=== PATIENT | female | born 1990 | race Caucasian/White ===

== ENCOUNTER 2016-05-13 13:36 | Emergency (ER) | payer OTHER ==
[~2016-05-13] VITALS: Ht 165.1 cm; Wt 87.2 kg
[~2016-05-13 13:36] MED LIST: ACETAMINOPHN-T1 EACH; BUPROPION XL150 MG PO; BUTALB-APAP-CA1 EACH; CYCLOBENZAPR TAB 10M; ENDOCET 5-3251 EACH PO; FLEXERIL5 MG PO; IBUPROFEN800 MG; KEFLEX500 MG PO; LORTAB 5-325 M1 EACH PO; MACRODANTIN100 MG PO; MONONESSA1 EACH PO; MOTRIN800 MG PO; MULTIVITAMIN1 EAC1 PO; Motrin PO; NAPROSYN500 MG PO; NO HOME MEDS; NOHOMEMEDS; NORCO 5/3251 TABLET PO; PERCOCET 5/31 TABLET PO; PREDNISONE10 MG PO; PRENATAL VITS; PRENATAL1 EACH PO; TORADOL10 MG PO; TYLENOL WITH C1 EACH PO; VALIUM5 MG PO; ZANTAC150 MG PO; ZOFRAN4 MG PO
[2016-05-13 14:38] LABS: ADD MIUA? NO; BILIRUBIN NEGATIVE; BLOOD NEGATIVE; COLOR YELLOW ((YELLOW)); GLUCOSE (STRIP) NEGATIVE; KETONES NEGATIVE; LEUKOCYTES NEGATIVE; NITRITE NEGATIVE; PROTEIN (STRIP) NEGATIVE; SPECIFIC GRAVITY 1.023 (1.000-1.030); UROBILINOGEN 0.2 MG/DL (0.2-1.0)
[2016-05-13 15:17] LABS: CHLORIDE 111 mEq/L (99-109); POTASSIUM 4.5 mEq/L (3.7-5.4); SODIUM 141 mEq/L (136-147)
[2016-05-13 15:20] LABS: GLUCOSE 88 mg/dL (70-99)
[2016-05-13 15:21] LABS: ANION GAP 6 MEQ/L (2-14)
[2016-05-13 15:22] LABS: TOTAL BILIRUBIN 0.3 mg/dL (0.0-1.0)
[2016-05-13 15:23] LABS: ALKALINE PHOSPHATASE 46 IU/L (3-129); GFR ESTIMATE (CALCULATED) > 59 mL/min/
[2016-05-13 15:25] LABS: UREA NITROGEN (BUN) 8 mg/dL (9-23)
[2016-05-13 15:27] LABS: LIPASE 30 U/L (1.0-51.0)
[2016-05-13 15:33] LABS: QUANTITATIVE HCG < 4.0 MIU/ML
[2016-05-13 16:05] LABS: HEMATOCRIT 39.7 % (36.0-46.0); MCH 30.7 PG (29.0-34.0); MCHC 34.5 G/DL (30.0-36.0); MEAN PLAT.VOLUME 13.7 uM^3 (9.5-12.4); PLATELET COUNT 112 K/uL (156-360); RBC DIS.WIDTH-CV 14.1 % (11.8-14.6); RBC DIS.WIDTH-SD 45.4 % (39-53); RED BLOOD COUNT 4.46 M/uL (3.80-5.20); WHITE BLOOD COUNT 4.5 K/uL (4.1-10.2)
[2016-05-13] MEDS ORDERED: CITRATE OF MAG296 ML PO (16:39)
[2016-05-13] MEDS ORDERED: ZOFRAN ODT4 MG PO (16:39)
[2016-05-13] MEDS ORDERED: STOOL SOFTENER250 MG PO (16:39)
[2016-05-13] MEDS ORDERED: MIRALAX255 GM PO (16:39)
[2016-05-13 16:59] VITALS: BP 121/84
== END 2016-05-13 17:02 | disposition home or self-care (01) ==
LOC: EME 13:36
PROVIDERS: Nurse Practitioner Family
DX: R10.2 Pelvic and perineal pain (principal); K59.03 Drug induced constipation; F17.200 Nicotine dependence, unspecified, uncomplicated; Z97.5 Presence of (intrauterine) contraceptive device; Z88.6 Allergy status to analgesic agent
CPT/HCPCS: 74000; 80053; 81003; 83690; 84702; 85027; 87210; 99281; 99284; J1885

== ENCOUNTER 2017-03-07 15:46 | Emergency (ER) | payer OTHER ==
[~2017-03-07] VITALS: Ht 167.6 cm; Wt 88.8 kg
[~2017-03-07 15:46] MED LIST changes: +CITRATE OF MAG296 ML PO; +MIRALAX255 GM PO; +STOOL SOFTENER250 MG PO; +ZOFRAN ODT4 MG PO
[2017-03-07 17:54] LABS: HEMATOCRIT 40.8 % (36.0-46.0); MCH 30.4 PG (29.0-34.0); MCHC 34.3 G/DL (30.0-36.0); MCV 88.7 FL (83-99); MEAN PLAT.VOLUME 13.4 uM^3 (9.5-12.4); PLATELET COUNT 172 K/uL (156-360); RBC DIS.WIDTH-CV 13.8 % (11.8-14.6); RBC DIS.WIDTH-SD 44.7 % (39-53); WHITE BLOOD COUNT 7.3 K/uL (4.1-10.2)
[2017-03-07 18:08] LABS: ADD MIUA? NO; BILIRUBIN NEGATIVE; BLOOD NEGATIVE; COLOR YELLOW ((YELLOW)); GLUCOSE (STRIP) NEGATIVE; KETONES NEGATIVE; LEUKOCYTES NEGATIVE; NITRITE NEGATIVE; PROTEIN (STRIP) NEGATIVE; SPECIFIC GRAVITY 1.035 (1.000-1.030); UCUL ADDED? NO; UROBILINOGEN 0.2 MG/DL (0.2-1.0)
[2017-03-07 18:09] LABS: CHLORIDE 108 mEq/L (99-109); POTASSIUM 3.9 mEq/L (3.7-5.4); SODIUM 140 mEq/L (136-147)
[2017-03-07 18:11] LABS: GLUCOSE 88 mg/dL (70-99)
[2017-03-07 18:12] LABS: ANION GAP 8 MEQ/L (2-14)
[2017-03-07 18:13] LABS: TOTAL BILIRUBIN 0.2 mg/dL (0.0-1.0)
[2017-03-07 18:15] LABS: ALKALINE PHOSPHATASE 55 IU/L (3-129); GFR ESTIMATE (CALCULATED) > 59 mL/min/
[2017-03-07 18:16] LABS: UREA NITROGEN (BUN) 10 mg/dL (9-23)
[2017-03-07 18:24] LABS: QUANTITATIVE HCG 81.4 MIU/ML
[2017-03-07] MEDS ORDERED: PRENATAL ONE T1 EACH PO (18:35)
[2017-03-07] MEDS ORDERED: ZOFRAN4 MG PO (18:35)
[2017-03-07 18:39] VITALS: BP 121/69
== END 2017-03-07 18:52 | disposition home or self-care (01) ==
LOC: EME 15:46
DX: O26.891 Other specified pregnancy related conditions, first trimester (principal); R10.30 Lower abdominal pain, unspecified; R10.2 Pelvic and perineal pain; Z3A.00 Weeks of gestation of pregnancy not specified; O99.511 Diseases of the respiratory system complicating pregnancy, first trimester; J45.909 Unspecified asthma, uncomplicated; O99.341 Other mental disorders complicating pregnancy, first trimester; F32.9 Major depressive disorder, single episode, unspecified; O99.331 Smoking (tobacco) complicating pregnancy, first trimester; Z72.0 Tobacco use
CPT/HCPCS: 80053; 81003; 84702; 85027; 99281; 99283

== ENCOUNTER 2017-04-13 17:09 | Emergency (ER) | payer OTHER ==
[~2017-04-13] VITALS: Ht 167.6 cm; Wt 85.5 kg
[~2017-04-13 17:09] MED LIST changes: +PRENATAL ONE T1 EACH PO
[2017-04-13 18:29] LABS: HEMATOCRIT 40.2 % (36.0-46.0); HEMOGLOBIN 14.1 G/DL (11.9-15.5); MCH 31.1 PG (29.0-34.0); MCHC 35.1 G/DL (30.0-36.0); MCV 88.5 FL (83-99); PLATELET COUNT 120 K/uL (156-360); RBC DIS.WIDTH-CV 13.2 % (11.8-14.6); RBC DIS.WIDTH-SD 43.2 % (39-53); RED BLOOD COUNT 4.54 M/uL (3.80-5.20); WHITE BLOOD COUNT 9.2 K/uL (4.1-10.2)
[2017-04-13 18:39] LABS: ALBUMIN 3.9 g/dL (3.2-4.8); CHLORIDE 108 mEq/L (99-109); POTASSIUM 3.6 mEq/L (3.7-5.4)
[2017-04-13 18:40] LABS: SODIUM 137 mEq/L (136-147)
[2017-04-13 18:42] LABS: GLUCOSE 92 mg/dL (70-99); TOTAL PROTEIN 6.9 g/dL (6.4-8.3)
[2017-04-13 18:44] LABS: TOTAL BILIRUBIN 0.2 mg/dL (0.0-1.0)
[2017-04-13 18:45] LABS: ALKALINE PHOSPHATASE 41 IU/L (3-129); CREATININE 0.6 mg/dL (0.6-1.3); GFR ESTIMATE (CALCULATED) > 59 mL/min/
[2017-04-13 18:46] LABS: APPEARANCE SL.HAZY ((CLEAR)); BILIRUBIN SMALL; BLOOD NEGATIVE; COLOR AMBER ((YELLOW)); GLUCOSE (STRIP) NEGATIVE; KETONES 5; LEUKOCYTES NEGATIVE; NITRITE NEGATIVE; PROTEIN (STRIP) 30; SPECIFIC GRAVITY 1.036 (1.000-1.030)
[2017-04-13 18:47] LABS: AST (GOT) 10 IU/L (2-34); UREA NITROGEN (BUN) 10 mg/dL (9-23)
[2017-04-13 18:48] LABS: ALT (GPT) 9 IU/L (3-49)
[2017-04-13 19:13] LABS: QUANTITATIVE HCG 145294.7 MIU/ML
[2017-04-13 19:31] LABS: EPITHELIAL CELLS RARE /HPF; MUCUS 3+ /LPF; RED BLOOD CELLS RARE /HPF (0-5); WHITE BLOOD CELLS 0-5 /HPF (0-5)
[2017-04-13 19:32] LABS: BACTERIA RARE /HPF; UCUL ADDED? NO
[2017-04-13 19:33] LABS: CALCIUM OXALATE CRYSTALS 2+ /HPF
[2017-04-13] MEDS ORDERED: ZOFRAN4 MG PO (20:53)
[2017-04-13 21:09] VITALS: BP 111/78
== END 2017-04-13 21:09 | disposition home or self-care (01) ==
LOC: EME 17:09
DX: O21.9 Vomiting of pregnancy, unspecified (principal); Z3A.09 9 weeks gestation of pregnancy; J45.909 Unspecified asthma, uncomplicated; F32.9 Major depressive disorder, single episode, unspecified; Z87.891 Personal history of nicotine dependence; Z90.49 Acquired absence of other specified parts of digestive tract; Z88.5 Allergy status to narcotic agent; Z88.6 Allergy status to analgesic agent; Z91.041 Radiographic dye allergy status
CPT/HCPCS: 76801; 80053; 81003; 84702; 85027; 99281; 99284; J2405; J7030

== ENCOUNTER 2017-06-23 14:13 | Emergency (ER) | payer OTHER ==
[~2017-06-23] VITALS: Ht 167.6 cm; Wt 87.2 kg
[2017-06-23 14:31] LABS: HEMOGLOBIN 13.1 G/DL (11.9-15.5); MCHC 34.5 G/DL (30.0-36.0); MCV 89.8 FL (83-99); RBC DIS.WIDTH-CV 14.2 % (11.8-14.6); RBC DIS.WIDTH-SD 46.2 % (39-53); RED BLOOD COUNT 4.23 M/uL (3.80-5.20); WHITE BLOOD COUNT 11.1 K/uL (4.1-10.2)
[2017-06-23 14:46] LABS: APPEARANCE SL.HAZY ((CLEAR)); BILIRUBIN NEGATIVE; BLOOD NEGATIVE; COLOR YELLOW ((YELLOW)); GLUCOSE (STRIP) NEGATIVE; KETONES NEGATIVE; LEUKOCYTES TRACE; NITRITE NEGATIVE; PROTEIN (STRIP) NEGATIVE; SPECIFIC GRAVITY 1.023 (1.000-1.030); UROBILINOGEN 0.2 MG/DL (0.2-1.0)
[2017-06-23 14:52] LABS: QUANTITATIVE HCG 9059.5 MIU/ML
[2017-06-23 14:58] LABS: BACTERIA 1+ /HPF; CALCIUM OXALATE CRYSTALS 1+ /HPF; EPITHELIAL CELLS RARE /HPF; HYALINE CASTS 0-5 /LPF; MUCUS 4+ /LPF; UCUL ADDED? YES
[2017-06-23 15:41] LABS: CHLORIDE 108 mEq/L (99-109); POTASSIUM 3.9 mEq/L (3.7-5.4); SODIUM 137 mEq/L (136-147)
[2017-06-23 15:42] LABS: GLUCOSE 116 mg/dL (70-99)
[2017-06-23 15:46] LABS: CREATININE 0.6 mg/dL (0.6-1.3); GFR ESTIMATE (CALCULATED) > 59 mL/min/
[2017-06-23 15:47] LABS: UREA NITROGEN (BUN) 7 mg/dL (9-23)
[2017-06-23 15:54] LABS: PLAT.SUFFICIENCY ADEQUATE; PLATELET COUNT 142 K/uL (156-360)
[2017-06-23] MEDS ORDERED: KEFLEX500 MG PO (16:36)
[2017-06-23 18:07] VITALS: BP 103/65
== END 2017-06-23 18:11 | disposition home or self-care (01) ==
LOC: EME 14:13
DX: O26.892 Other specified pregnancy related conditions, second trimester (principal); R10.2 Pelvic and perineal pain; O23.42 Unspecified infection of urinary tract in pregnancy, second trimester; O99.282 Endocrine, nutritional and metabolic diseases complicating pregnancy, second trimester; E86.0 Dehydration; O20.9 Hemorrhage in early pregnancy, unspecified; Z3A.19 19 weeks gestation of pregnancy; O99.512 Diseases of the respiratory system complicating pregnancy, second trimester; J45.909 Unspecified asthma, uncomplicated; O99.342 Other mental disorders complicating pregnancy, second trimester; F32.9 Major depressive disorder, single episode, unspecified; Z88.5 Allergy status to narcotic agent; Z87.891 Personal history of nicotine dependence
CPT/HCPCS: 76770; 76805; 80048; 81003; 84702; 85027; 87077; 87086; 87186; 99281; 99285; J0696; J7030

== ENCOUNTER 2017-07-26 18:16 | Observation (INO) | payer OTHER ==
[~2017-07-26] VITALS: Ht 162.6 cm; Wt 87.2 kg
[2017-07-26 20:52] LABS: HEMATOCRIT 36.7 % (36.0-46.0); HEMOGLOBIN 12.8 G/DL (11.9-15.5); MCH 31.8 PG (29.0-34.0); MCHC 34.9 G/DL (30.0-36.0); MCV 91.3 FL (83-99); PLATELET COUNT 153 K/uL (156-360); RBC DIS.WIDTH-CV 13.9 % (11.8-14.6); RBC DIS.WIDTH-SD 46.6 % (39-53); RED BLOOD COUNT 4.02 M/uL (3.80-5.20); WHITE BLOOD COUNT 13.3 K/uL (4.1-10.2)
[2017-07-26 21:05] LABS: ALBUMIN 3.6 g/dL (3.2-4.8)
[2017-07-26 21:06] LABS: CHLORIDE 109 mEq/L (99-109); POTASSIUM 3.7 mEq/L (3.7-5.4); SODIUM 140 mEq/L (136-147)
[2017-07-26 21:08] LABS: GLUCOSE 81 mg/dL (70-99); TOTAL PROTEIN 7.1 g/dL (6.4-8.3)
[2017-07-26 21:10] LABS: TOTAL BILIRUBIN 0.3 mg/dL (0.0-1.0)
[2017-07-26 21:11] LABS: ALKALINE PHOSPHATASE 100 IU/L (3-129)
[2017-07-26 21:12] LABS: CREATININE 0.6 mg/dL (0.6-1.3); GFR ESTIMATE (CALCULATED) > 59 mL/min/
[2017-07-26 21:13] LABS: AST (GOT) 9 IU/L (2-34); UREA NITROGEN (BUN) 5 mg/dL (9-23)
[2017-07-26 21:14] LABS: ALT (GPT) 12 IU/L (3-49)
[2017-07-26 21:22] LABS: APPEARANCE CLEAR ((CLEAR)); BILIRUBIN NEGATIVE; BLOOD NEGATIVE; COLOR YELLOW ((YELLOW)); GLUCOSE (STRIP) NEGATIVE; KETONES 5; LEUKOCYTES TRACE; NITRITE NEGATIVE; PROTEIN (STRIP) 30; SPECIFIC GRAVITY 1.026 (1.000-1.030); UROBILINOGEN 0.2 MG/DL (0.2-1.0)
[2017-07-26 21:39] LABS: BACTERIA RARE /HPF; EPITHELIAL CELLS 1+ /HPF; MUCUS 4+ /LPF; UCUL ADDED? NO; WHITE BLOOD CELLS 0-5 /HPF (0-5)
[2017-07-27 01:00] VITALS: BP 110/55
[2017-07-27 07:35] VITALS: BP 118/57
[2017-07-27 07:59] LABS: HEMATOCRIT 31.9 % (36.0-46.0); HEMOGLOBIN 11.1 G/DL (11.9-15.5); MCH 31.7 PG (29.0-34.0); MCHC 34.8 G/DL (30.0-36.0); MCV 91.1 FL (83-99); PLATELET COUNT 141 K/uL (156-360); RBC DIS.WIDTH-CV 13.8 % (11.8-14.6); RBC DIS.WIDTH-SD 46.1 % (39-53); WHITE BLOOD COUNT 9.9 K/uL (4.1-10.2)
[2017-07-27 15:11] VITALS: BP 114/58
[2017-07-27 20:52] VITALS: BP 110/61
[2017-07-28 02:37] VITALS: BP 94/52
[2017-07-28 07:27] VITALS: BP 94/60
[2017-07-28 07:54] LABS: BASOPHIL (%) 0.3 % (0-1); EOSINOPHIL (%) 1.1 % (0-5); EOSINOPHIL COUNT 0.1 K/uL (0-0.3); HEMATOCRIT 32.5 % (36.0-46.0); HEMOGLOBIN 10.8 G/DL (11.9-15.5); IMMATURE GRANULOCYTE (%) 0.3 % (0.0-0.7); LYMPHOCYTE (%) 17.6 % (15-42); LYMPHOCYTE COUNT 1.6 K/uL (1.0-2.8); MCH 30.7 PG (29.0-34.0); MCHC 33.2 G/DL (30.0-36.0); MCV 92.3 FL (83-99); MONOCYTE (%) 5.7 % (3-12); MONOCYTE COUNT 0.5 K/uL (0-0.8); NEUTROPHIL COUNT 6.8 K/uL (1.8-6.4); PLATELET COUNT 135 K/uL (156-360); RBC DIS.WIDTH-CV 13.9 % (11.8-14.6); RED BLOOD COUNT 3.52 M/uL (3.80-5.20); WHITE BLOOD COUNT 9.1 K/uL (4.1-10.2)
[2017-07-28 08:18] LABS: ALBUMIN 3.1 G/DL (3.2-4.8); ALKALINE PHOSPHATASE 65 IU/L (3-129); ALT (GPT) 7 IU/L (3-49); AST (GOT) 7 IU/L (2-34); CHLORIDE 110 MEQ/L (99-109); CREATININE 0.4 MG/DL (0.6-1.3); GFR ESTIMATE (CALCULATED) > 59 mL/min/; GLUCOSE 99 mg/dL (70-99); POTASSIUM 3.7 MEQ/L (3.7-5.4); SODIUM 140 MEQ/L (136-147); TOTAL BILIRUBIN 0.2 MG/DL (0.0-1.0); TOTAL PROTEIN 5.3 G/DL (6.4-8.3); UREA NITROGEN (BUN) 5 mg/dL (9-23)
[2017-07-28 10:30] VITALS: BP 99/55
[2017-07-28 15:31] VITALS: BP 99/54
== END 2017-07-28 18:09 | disposition home or self-care (01) ==
LOC: EME 18:16 → EDOF 22:28 → 2WEST 22:28 → EDOF 22:28 → ENRESERV 22:29 → CANRESERV 23:47 → ENRESERV 23:56 → EDOF 07-27 00:23 → 2WEST 07-27 00:45
PROVIDERS: Obstetrics & Gynecology Gynecology; Physician Assistant; Student in an Organized Health Care Education/Training Program
DX: O98.812 Other maternal infectious and parasitic diseases complicating pregnancy, second trimester (principal); H05.012 Cellulitis of left orbit; J32.2 Chronic ethmoidal sinusitis; J32.0 Chronic maxillary sinusitis; O99.512 Diseases of the respiratory system complicating pregnancy, second trimester; J45.909 Unspecified asthma, uncomplicated; O99.612 Diseases of the digestive system complicating pregnancy, second trimester; K02.9 Dental caries, unspecified; O99.012 Anemia complicating pregnancy, second trimester; D64.9 Anemia, unspecified; O99.342 Other mental disorders complicating pregnancy, second trimester; F31.9 Bipolar disorder, unspecified; Z3A.23 23 weeks gestation of pregnancy; Z87.891 Personal history of nicotine dependence; Z83.3 Family history of diabetes mellitus; Z82.49 Family history of ischemic heart disease and other diseases of the circulatory system
CPT/HCPCS: 59025; 70487; 80053; 81003; 85025; 85027; 99281; 99284; G0378; J0696; J3370; J7030

== ENCOUNTER 2017-08-23 21:13 | Outpatient (CLI) | payer OTHER ==
[2017-08-23 21:42] VITALS: BP 93/55
[2017-08-23 22:16] LABS: SOURCE SWAB
[2017-08-23 22:34] LABS: APPEARANCE SL.HAZY ((CLEAR)); BILIRUBIN NEGATIVE; BLOOD NEGATIVE; COLOR YELLOW ((YELLOW)); GLUCOSE (STRIP) NEGATIVE; KETONES 5; LEUKOCYTES NEGATIVE; NITRITE NEGATIVE; PROTEIN (STRIP) NEGATIVE; SPECIFIC GRAVITY 1.017 (1.000-1.030)
[2017-08-23 22:53] LABS: BACTERIA NONE SEEN /HPF; EPITHELIAL CELLS 1+ /HPF; MUCUS TRACE /LPF; RED BLOOD CELLS 0-5 /HPF (0-5); UCUL ADDED? NO; WHITE BLOOD CELLS 0-5 /HPF (0-5)
== END 2017-08-23 23:17 | disposition home or self-care (01) ==
LOC: LDRP-OP 21:13 → 2WEST 21:14
PROVIDERS: Nurse Practitioner
DX: O26.852 Spotting complicating pregnancy, second trimester (principal); R30.0 Dysuria; R35.0 Frequency of micturition; Z86.19 Personal history of other infectious and parasitic diseases; O99.342 Other mental disorders complicating pregnancy, second trimester; F32.9 Major depressive disorder, single episode, unspecified; O99.512 Diseases of the respiratory system complicating pregnancy, second trimester; J45.909 Unspecified asthma, uncomplicated; Z87.891 Personal history of nicotine dependence; Z82.3 Family history of stroke; O99.352 Diseases of the nervous system complicating pregnancy, second trimester; G43.909 Migraine, unspecified, not intractable, without status migrainosus; O34.219 Maternal care for unspecified type scar from previous cesarean delivery; Z90.49 Acquired absence of other specified parts of digestive tract; Z3A.27 27 weeks gestation of pregnancy
CPT/HCPCS: 59025; 81003; 87491; 87591; G0378

== ENCOUNTER 2017-10-27 19:30 | Outpatient (CLI) | payer OTHER ==
[2017-10-27 19:42] VITALS: BP 112/71
== END 2017-10-27 20:35 | disposition home or self-care (01) ==
LOC: LDRP-OP 19:30 → 2WEST 19:31 → LDRP-OP 12-19 11:55
DX: O26.893 Other specified pregnancy related conditions, third trimester (principal); Z3A.36 36 weeks gestation of pregnancy
CPT/HCPCS: 59025; G0378

== ENCOUNTER 2017-11-05 20:36 | Outpatient (CLI) | payer OTHER ==
[2017-11-05 20:50] VITALS: BP 114/67
[2017-11-05 22:40] LABS: CANDIDA DNA PROBE NEGATIVE; GARDNERELLA DNA PROBE POSITIVE; TRICHOMONAS DNA PROBE NEGATIVE
[2017-11-07] MEDS ORDERED: PRENATAL TABLE1 EAC3 PO (09:58)
[2017-11-07] MEDS ORDERED: TYLENOL325 M2 PO (09:58)
== END 2017-11-05 21:30 | disposition home or self-care (01) ==
LOC: LDRP-OP 20:36 → 2WEST 20:37 → LDRP-OP 12-19 20:43
PROVIDERS: Obstetrics & Gynecology
DX: O26.893 Other specified pregnancy related conditions, third trimester (principal); Z3A.38 38 weeks gestation of pregnancy; O99.333 Smoking (tobacco) complicating pregnancy, third trimester
CPT/HCPCS: 59025; 87480; 87510; 87660; G0378

== ENCOUNTER 2017-11-11 15:17 | Outpatient (CLI) | payer OTHER ==
[~2017-11-11] VITALS: Ht 167.6 cm; Wt 85.3 kg
[~2017-11-11 15:17] MED LIST changes: +PRENATAL TABLE1 EAC3 PO; +TYLENOL325 M2 PO
[2017-11-11 15:32] VITALS: BP 117/66
[2017-11-12] MEDS ORDERED: PERCOCET 5/31 TABLET PO (12:09)
[2017-11-12] MEDS ORDERED: MOTRIN800 MG PO (12:09)
== END 2017-11-11 17:34 | disposition home or self-care (01) ==
LOC: LDRP-OP 15:17 → 2WEST 15:18 → LDRP-OP 12-19 22:25
DX: O26.893 Other specified pregnancy related conditions, third trimester (principal); O23.593 Infection of other part of genital tract in pregnancy, third trimester; B96.89 Other specified bacterial agents as the cause of diseases classified elsewhere; N76.0 Acute vaginitis; O34.211 Maternal care for low transverse scar from previous cesarean delivery; O99.513 Diseases of the respiratory system complicating pregnancy, third trimester; J45.909 Unspecified asthma, uncomplicated; O99.343 Other mental disorders complicating pregnancy, third trimester; F31.9 Bipolar disorder, unspecified; G43.909 Migraine, unspecified, not intractable, without status migrainosus; Z90.49 Acquired absence of other specified parts of digestive tract; Z3A.39 39 weeks gestation of pregnancy
CPT/HCPCS: 59025; G0378

== ENCOUNTER 2017-11-12 05:49 | Inpatient (IN) | payer OTHER ==
[~2017-11-12] VITALS: Ht 167.6 cm; Wt 88.0 kg
[2017-11-12 08:29] LABS: AMPHETAMINE NEGATIVE (500 ng/mL); BARBITURATES NEGATIVE (200 ng/mL); BENZODIAZEPINES NEGATIVE (150 ng/mL); BUPRENORPHINE NEGATIVE (10 ng/mL); COCAINE NEGATIVE (150 ng/mL); METHADONE NEGATIVE (200 ng/mL); METHAMPHETAMINE NEGATIVE (500 ng/mL); OPIATES (MORPHINE) NEGATIVE (100 ng/mL); OXYCODONE NEGATIVE (100 ng/mL); PHENCYCLIDINE NEGATIVE (25 ng/mL); PROPOXYPHENE NEGATIVE (300 ng/mL); THC CANNABINOIDS NEGATIVE (50 ng/mL); TRICYCLIC ANTIDEPRESSANTS NEGATIVE (300 ng/mL)
[2017-11-12] MEDS ORDERED: PERCOCET 5/31 TABLET PO (12:09)
[2017-11-12] MEDS ORDERED: MOTRIN800 MG PO (12:09)
[2017-11-12 19:08] VITALS: BP 113/71
[2017-11-12 21:05] VITALS: BP 112/54
[2017-11-12 22:34] VITALS: BP 103/54
[2017-11-13 02:57] VITALS: BP 103/55
[2017-11-13 07:37] VITALS: BP 104/57
[2017-11-13 08:07] LABS: BASOPHIL (%) 0.3 % (0-1); EOSINOPHIL (%) 1.3 % (0-5); EOSINOPHIL COUNT 0.2 K/uL (0-0.3); HEMATOCRIT 33.5 % (36.0-46.0); HEMOGLOBIN 11.3 G/DL (11.9-15.5); IMMATURE GRANULOCYTE (%) 0.3 % (0.0-0.7); LYMPHOCYTE COUNT 1.9 K/uL (1.0-2.8); MCH 29.6 PG (29.0-34.0); MCHC 33.7 G/DL (30.0-36.0); MCV 87.7 FL (83-99); MONOCYTE (%) 6.3 % (3-12); MONOCYTE COUNT 0.8 K/uL (0-0.8); NEUTROPHIL (%) 76.8 % (45-76); NEUTROPHIL COUNT 9.7 K/uL (1.8-6.4); PLATELET COUNT 147 K/uL (156-360); RBC DIS.WIDTH-CV 15.1 % (11.8-14.6); RBC DIS.WIDTH-SD 48.3 % (39-53); RED BLOOD COUNT 3.82 M/uL (3.80-5.20); WHITE BLOOD COUNT 12.6 K/uL (4.1-10.2)
[2017-11-13 11:25] VITALS: BP 101/56
[2017-11-13 14:53] VITALS: BP 111/55
[2017-11-13 19:02] VITALS: BP 116/64
[2017-11-14 04:10] VITALS: BP 101/53
[2017-11-14 07:45] VITALS: BP 115/67
[2017-11-14 16:00] VITALS: BP 130/79
[2017-11-15 07:31] VITALS: BP 113/74
[2017-11-15 14:59] VITALS: BP 124/75
[2017-11-15 23:01] VITALS: BP 111/78
[2017-11-16 07:43] VITALS: BP 117/82
== END 2017-11-16 15:04 | disposition home or self-care (01) | DRG 766 ==
LOC: 2WEST 05:49 → 2SOUTH 14:36 → 2WEST 11-16 15:04
PROVIDERS: Obstetrics & Gynecology
PROC: 10D00Z1 Extraction of Products of Conception, Low, Open Approach (ICD-10-PCS; principal; 2017-11-12)
DX: O34.211 Maternal care for low transverse scar from previous cesarean delivery (principal); O99.824 Streptococcus B carrier state complicating childbirth; O99.214 Obesity complicating childbirth; E66.9 Obesity, unspecified; Z68.32 Body mass index [BMI] 32.0-32.9, adult; O99.334 Smoking (tobacco) complicating childbirth; F17.290 Nicotine dependence, other tobacco product, uncomplicated; R05 Cough; Z3A.39 39 weeks gestation of pregnancy; Z37.0 Single live birth
CPT/HCPCS: 36415; 85025; 86850; 86900; 86901; J0690; J1200; J2274; J7120; S0020

== ENCOUNTER 2017-11-29 10:02 | Emergency (ER) | payer OTHER ==
[~2017-11-29] VITALS: Ht 165.1 cm; Wt 77.2 kg
[2017-11-29 11:36] LABS: INTER. NORMALIZED RATIO 1.1
[2017-11-29 11:39] LABS: BASOPHIL (%) 0.8 % (0-1); BASOPHIL COUNT 0.1 K/uL (0-0.1); EOSINOPHIL (%) 2.2 % (0-5); EOSINOPHIL COUNT 0.1 K/uL (0-0.3); HEMATOCRIT 40.7 % (36.0-46.0); IMMATURE GRANULOCYTE (%) 0.2 % (0.0-0.7); LYMPHOCYTE (%) 33.7 % (15-42); MCH 28.9 PG (29.0-34.0); MCHC 32.7 G/DL (30.0-36.0); MCV 88.3 FL (83-99); MONOCYTE (%) 4.8 % (3-12); MONOCYTE COUNT 0.3 K/uL (0-0.8); NEUTROPHIL (%) 58.3 % (45-76); NEUTROPHIL COUNT 3.5 K/uL (1.8-6.4); RBC DIS.WIDTH-CV 14.4 % (11.8-14.6); RBC DIS.WIDTH-SD 46.4 % (39-53)
[2017-11-29 11:41] LABS: CHLORIDE 111 mEq/L (99-109)
[2017-11-29 11:42] LABS: SODIUM 142 mEq/L (136-147)
[2017-11-29 11:43] LABS: GLUCOSE 88 mg/dL (70-99)
[2017-11-29 11:47] LABS: CREATININE 0.8 mg/dL (0.6-1.3); GFR ESTIMATE (CALCULATED) > 59 mL/min/
[2017-11-29 11:48] LABS: UREA NITROGEN (BUN) 9 mg/dL (9-23)
[2017-11-29 11:54] LABS: HEMOGLOBIN 13.3 G/DL (11.9-15.5); PLATELET COUNT 206 K/uL (156-360); RED BLOOD COUNT 4.61 M/uL (3.80-5.20)
[2017-11-29 11:59] LABS: SOURCE SWAB
[2017-11-29] MEDS ORDERED: TYLENOL WITH C1 EACH PO (12:49)
[2017-11-29 13:02] VITALS: BP 113/58
== END 2017-11-29 13:09 | disposition home or self-care (01) ==
LOC: EME 10:02
PROVIDERS: Nurse Practitioner Family
DX: O72.1 Other immediate postpartum hemorrhage (principal); R10.9 Unspecified abdominal pain; F32.9 Major depressive disorder, single episode, unspecified; J45.909 Unspecified asthma, uncomplicated; F17.200 Nicotine dependence, unspecified, uncomplicated; Z88.5 Allergy status to narcotic agent
CPT/HCPCS: 80048; 85025; 85610; 85730; 86850; 86900; 86901; 87210; 87491; 87591; 99281; 99284